=== PATIENT | female | born 1965 | race Caucasian/White ===

== ENCOUNTER → 2017-04-07 | Outpatient (CLI) | payer OTHER | LOC: US 03-23 08:45 | DX: K74.60 Unspecified cirrhosis of liver (principal); B19.10 Unspecified viral hepatitis B without hepatic coma; R16.2 Hepatomegaly with splenomegaly, not elsewhere classified | CPT/HCPCS: 76700 ==

== ENCOUNTER 2021-05-21 22:02 | Emergency (ER) | payer MEDICARE, OTHER ==
[~2021-05-21 22:02] MED LIST: LEVOFLOXACIN250 MG PO
[2021-05-21 22:47] LABS: WHITE BLOOD COUNT 15.5 K/UL (4.5-11.0)
== END 2021-05-22 00:15 | disposition home or self-care (01) ==
LOC: ER1 22:02
PROVIDERS: Physician Assistant
DX: M79.89 Other specified soft tissue disorders (principal); F17.200 Nicotine dependence, unspecified, uncomplicated; Z90.49 Acquired absence of other specified parts of digestive tract; Z88.8 Allergy status to other drugs, medicaments and biological substances; Z88.0 Allergy status to penicillin
CPT/HCPCS: 80053; 85025; 85379; 87040

== ENCOUNTER 2021-05-22 15:45 | Inpatient (IN) | payer MEDICARE, OTHER ==
[~2021-05-22] VITALS: Ht 165.1 cm; Wt 90.7 kg
[2021-05-22 19:36] LABS: HEMOGLOBIN 14.9 gm/dl (12.3-15.3)
[2021-05-22 19:37] LABS: RED BLOOD COUNT 4.41 M/UL (4.00-5.10); WHITE BLOOD COUNT 19.9 K/UL (4.5-11.0)
[2021-05-23 04:46] LABS: HEMOGLOBIN 12.5 gm/dl (12.3-15.3); RED BLOOD COUNT 3.64 M/UL (4.00-5.10)
[2021-05-23 11:34] LABS: ACINETOBACTER BAUMANNII Not Detected (Negative); CANDIDA ALBICANS Not Detected (Negative); CANDIDA KRUSEI Not Detected (Negative); CANDIDA TROPICALIS Not Detected (Negative); ENTEROCOCCUS Not Detected (Negative); ESCHERICHIA COLI Not Detected (Negative); HAEMOPHILUS INFLUENZAE Not Detected (Negative); KLEBSIELLA OXYTOCA Not Detected (Negative); KLEBSIELLA PNEUMONIAE Not Detected (Negative); KPC-CARBAPENEM-RESISTANCE GENE Not Detected (Negative); PROTEUS Not Detected (Negative); PSEUDOMONAS AERUGINOSA Not Detected (Negative); SERRATIA MARCESANS Not Detected (Negative); STAPHYLOCOCCUS Not Detected (Negative); STAPHYLOCOCCUS AUREUS Not Detected (Negative); STREP AGALACTIAE (GROUP B) Not Detected (Negative); mecA (METHICILLIN RESIST GENE Not Detected (Negative); vanA/B (VANCOMYCIN RESIST GENE Not Detected (Negative)
[2021-05-23 13:08] LABS: STREP PYOGENES (GROUP A) DETECTED (Negative); STREPTOCOCCUS DETECTED (Negative)
[2021-05-24 04:36] LABS: HEMOGLOBIN 12.5 gm/dl (12.3-15.3); RED BLOOD COUNT 3.63 M/UL (4.00-5.10); WHITE BLOOD COUNT 10.1 K/UL (4.5-11.0)
[2021-05-25 05:51] LABS: HEMOGLOBIN 11.8 gm/dl (12.3-15.3); RED BLOOD COUNT 3.49 M/UL (4.00-5.10); WHITE BLOOD COUNT 12.4 K/UL (4.5-11.0)
[2021-05-26 07:02] LABS: HEMOGLOBIN 11.8 gm/dl (12.3-15.3); RED BLOOD COUNT 3.62 M/UL (4.00-5.10); WHITE BLOOD COUNT 13.1 K/UL (4.5-11.0)
[2021-05-27 05:54] LABS: HEMOGLOBIN 12.2 gm/dl (12.3-15.3); RED BLOOD COUNT 3.71 M/UL (4.00-5.10); WHITE BLOOD COUNT 11.5 K/UL (4.5-11.0)
--- NOTE | 2021-05-27 16:21 | NUR ---
BID dressing change to right foot done at this time
[2021-05-28 06:34] LABS: HEMOGLOBIN 13.2 gm/dl (12.3-15.3); RED BLOOD COUNT 3.79 M/UL (4.00-5.10); WHITE BLOOD COUNT 10.9 K/UL (4.5-11.0)
--- NOTE | 2021-05-28 16:14 | NUR ---
BID dressing change performed at this time to right foot.
[2021-05-29] MEDS ORDERED: SILVADENE20 GM TOP (17:12)
[2021-05-29] MEDS ORDERED: CHRONULAC20 GM/30 M PO (17:12)
[2021-05-29] MEDS ORDERED: LEVOFLOXACIN750 MG PO (17:12)
== END 2021-05-29 18:55 | disposition home health service (06) | DRG 871 ==
LOC: ER1 15:45 → CDU 21:52 → M/S 21:52 → PROG CARE 05-23 19:29 → M/S 05-24 15:46
PROVIDERS: Internal Medicine; Physician Assistant; ADMIT Internal Medicine
PROC: B24BZZZ Ultrasonography of Heart with Aorta (ICD-10-PCS; principal; 2021-05-25)
DX: A41.9 Sepsis, unspecified organism (principal); G93.41 Metabolic encephalopathy; B19.10 Unspecified viral hepatitis B without hepatic coma; N18.4 Chronic kidney disease, stage 4 (severe); L03.115 Cellulitis of right lower limb; E87.1 Hypo-osmolality and hyponatremia; E87.2 Acidosis; N17.9 Acute kidney failure, unspecified; R65.20 Severe sepsis without septic shock; K74.60 Unspecified cirrhosis of liver; D69.6 Thrombocytopenia, unspecified; F17.210 Nicotine dependence, cigarettes, uncomplicated; J44.9 Chronic obstructive pulmonary disease, unspecified; I12.9 Hypertensive chronic kidney disease with stage 1 through stage 4 chronic kidney disease, or unspecified chronic kidney disease; E87.6 Hypokalemia; E83.51 Hypocalcemia; E86.0 Dehydration; E88.09 Other disorders of plasma-protein metabolism, not elsewhere classified; K72.90 Hepatic failure, unspecified without coma; I27.20 Pulmonary hypertension, unspecified; I07.1 Rheumatic tricuspid insufficiency; Z90.49 Acquired absence of other specified parts of digestive tract; Z98.51 Tubal ligation status; Z88.0 Allergy status to penicillin; Z88.8 Allergy status to other drugs, medicaments and biological substances; Z87.440 Personal history of urinary (tract) infections
CPT/HCPCS: ECHO; 36415; 71045; 73630; 73700; 76705; 80048; 80053; 80202; 81001; 82140; 82746; 83036; 83605; 83690; 84132; 85025; 85027; 85379; 85610; 85730; 86140; 87040; 87077; 87150; 87186; 93005; 93306; 93971; 96374; 96375; 97116; 97116-GP-CQ; 97162; 97530-GP-CQ; 99283; 99285; G0378; J1650; J1956; J2185; J2270; J2405; J3370; J7030; J7070; P9047; U0002

== ENCOUNTER 2021-06-23 13:23 | Inpatient (IN) | payer MEDICARE, OTHER ==
[~2021-06-23] VITALS: Ht 165.1 cm; Wt 90.7 kg
[~2021-06-23 13:23] MED LIST changes: +CHRONULAC20 GM/30 M PO; +LEVOFLOXACIN750 MG PO; +SILVADENE20 GM TOP
[2021-06-23 15:22] LABS: HEMOGLOBIN 8.7 gm/dl (12.3-15.3); RED BLOOD COUNT 2.66 M/UL (4.00-5.10); WHITE BLOOD COUNT 4.3 K/UL (4.5-11.0)
[2021-06-23 20:54] LABS: HEMOGLOBIN 9.1 gm/dl (12.3-15.3); RED BLOOD COUNT 2.79 M/UL (4.00-5.10)
[2021-06-24 01:25] LABS: HEMOGLOBIN 9.4 gm/dl (12.3-15.3); RED BLOOD COUNT 2.87 M/UL (4.00-5.10)
[2021-06-24 01:26] LABS: WHITE BLOOD COUNT 6.8 K/UL (4.5-11.0)
[2021-06-25 07:04] LABS: HEMOGLOBIN 10.1 gm/dl (12.3-15.3); RED BLOOD COUNT 3.13 M/UL (4.00-5.10)
[2021-06-25 07:06] LABS: WHITE BLOOD COUNT 9.6 K/UL (4.5-11.0)
--- NOTE | 2021-06-25 08:50 | NUR ---
PT SIGNED AMA PAPERS, STATED THAT SHE DID NOT WANT TO BE HERE THAT WE WERE NOT HELPING HER AND REFUSED AN IV. DOCTOR CALLED AND FAMILY CALLED
[2021-06-25 13:28] LABS: BUN/CREATININE RATIO 27 (0-10)
--- NOTE | 2021-06-25 13:44 | NUR ---
PT HAS THROWN TELE/PULSE OX 5 TIMES. DOCTOR AWARE, TELE AWARE
[2021-06-26 06:34] LABS: RED BLOOD COUNT 3.06 M/UL (4.00-5.10)
[2021-06-26 06:40] LABS: WHITE BLOOD COUNT 12.2 K/UL (4.5-11.0)
--- NOTE | 2021-06-26 07:03 | NUR ---
WHILE GETTING REPORT FROM [employer] NURSE. PT OBSERVED SITTING ON SIDE OF BED, SHE WAS STATING SHE NEED TO "PEE", PT HAD PULLED IV OUT AND FLUIDS DRIPPING ON FLOOR. EXPLAINED TO PT SHE HAS PALMA CATH AND ENCOURAGED TO LIE IN BED AND REST UNTIL BREAKFAST.
--- NOTE | 2021-06-26 15:53 | NUR ---
PT ROLLING AROUND IN BED, IV ALARMING, WENT TO ROOM AND IV NOT INFUSING AND CLOTTED OFF.
--- NOTE | 2021-06-26 20:32 | NUR ---
PRIMARY RN WAS IN ANOTHER ISOLATION ROOM ATTEMPTING AN IV WHEN THIS PT FELL IN HER ROOM. PT WAS DISCOVERED TO BE IN FLOOR BY ORIENTING RN AND ALSO BY TECH ON FLOOR. PT WAS NOT ABLE TO BEAR WEIGHT TO GET BACK INTO BED. 2 RN'S AND 2 TECH'S PLACED PT BACK INTO BED AFTER BEING ABLE TO GET PT IN CHAIR. VS WERE STABLE. BP 102/80, HR 104, RR 20, TEMP 97.6 F ORALLY, AND O2 95% ON RA. MD MADE AWARE OF FALL, VS, AND NEW INJURIES, BLACK LEFT EYE, SKIN TEARS TO BILAT ARMS, BRUISING TO RIGHT SIDE. PT NOT COMPLAINING OF ANY NEW PAIN. STAT CT OF HEAD WITHOUT ORDERED. BED ALARMS X2 ACTIVATED, NON-SKID SOCKS PLACED. WCTM
[2021-06-27 06:49] LABS: HEMOGLOBIN 9.6 gm/dl (12.3-15.3); RED BLOOD COUNT 2.88 M/UL (4.00-5.10); WHITE BLOOD COUNT 11.8 K/UL (4.5-11.0)
[2021-06-28 07:43] LABS: HEMOGLOBIN 8.5 gm/dl (12.3-15.3); WHITE BLOOD COUNT 10.6 K/UL (4.5-11.0)
[2021-06-28 07:51] LABS: RED BLOOD COUNT 2.59 M/UL (4.00-5.10)
[2021-06-29 07:06] LABS: HEMOGLOBIN 8.3 gm/dl (12.3-15.3); RED BLOOD COUNT 2.52 M/UL (4.00-5.10); WHITE BLOOD COUNT 9.9 K/UL (4.5-11.0)
[2021-06-30 10:30] LABS: HEMOGLOBIN 7.8 gm/dl (12.3-15.3); RED BLOOD COUNT 2.32 M/UL (4.00-5.10); WHITE BLOOD COUNT 6.7 K/UL (4.5-11.0)
[2021-07-01 06:51] LABS: HEMOGLOBIN 6.3 gm/dl (12.3-15.3); RED BLOOD COUNT 1.89 M/UL (4.00-5.10)
[2021-07-02 10:07] LABS: WHITE BLOOD COUNT 4.8 K/UL (4.5-11.0)
[2021-07-02 10:39] LABS: HEMOGLOBIN 8.8 gm/dl (12.3-15.3); RED BLOOD COUNT 2.69 M/UL (4.00-5.10)
--- NOTE | 2021-07-02 13:08 | NUR ---
spoken with dr. dean patient condition r/t khan catheter pinkish color urine, hospital rob with signs of clear fluid around the abdominal area, patient condition and dr. dean acknowledged
--- NOTE | 2021-07-03 02:56 | NUR ---
PATIENT COMPLAINS OF SOA. PATIENT ON TELE SINUS HR 80S PULSE OX IN USE 98% ON 02 PER N/C. PATIENT COUGHING UP BLOODY SPUTUM ABDOMEN DISTENDED SOFT AND WEEPING. PATIENT ALSO HAS 2+ EDEMA IN THE LOWER EXTREMTITIES. DR JOSEPH NOTIFIED OF ALL THESE FINDINGS SEE CHART FOR ORDERS.
[2021-07-03 07:09] LABS: HEMOGLOBIN 8.6 gm/dl (12.3-15.3); RED BLOOD COUNT 2.61 M/UL (4.00-5.10); WHITE BLOOD COUNT 4.8 K/UL (4.5-11.0)
[2021-07-04 08:34] LABS: HEMOGLOBIN 8.7 gm/dl (12.3-15.3); RED BLOOD COUNT 2.58 M/UL (4.00-5.10)
[2021-07-04 08:35] LABS: WHITE BLOOD COUNT 6.5 K/UL (4.5-11.0)
--- NOTE | 2021-07-04 12:19 | NUR ---
family available and spoken to dr. dean and dr. ceballos about patient current condition. family talking to hospice admission nurse and dr. dean.
[2021-07-04] MEDS ORDERED: PROTONIX 40 MG40 M1 PO (13:08)
[2021-07-04] MEDS ORDERED: IPRAT-ALBUT 0.5-3 ML NEB (13:08)
[2021-07-04] MEDS ORDERED: ZOFRAN4 MG PO (13:26)
--- NOTE | 2021-07-04 16:26 | NUR ---
report given to denise culp nurse
--- NOTE | 2021-07-04 18:35 | NUR ---
Discharge folder was found at nurses desk. attempted to catch ems with no success. contacted hospice nurse and refused to product picker the folder. contacted family member and stated will product picker the folder. given the folder to family member.
== END 2021-07-04 17:13 | DRG 177 ==
LOC: ER1 13:23 → CDU 22:03 → M/S 22:03
PROVIDERS: Family Medicine; Internal Medicine; Physician Assistant Medical; ADMIT Internal Medicine
PROC: 8E0ZXY6 Isolation (ICD-10-PCS; principal; 2021-06-25)
DX: U07.1 COVID-19 (principal); J12.82 Pneumonia due to coronavirus disease 2019; K76.7 Hepatorenal syndrome; A41.89 Other specified sepsis; K72.00 Acute and subacute hepatic failure without coma; J96.01 Acute respiratory failure with hypoxia; S36.039A Unspecified laceration of spleen, initial encounter; B19.10 Unspecified viral hepatitis B without hepatic coma; R18.8 Other ascites; G93.40 Encephalopathy, unspecified; K76.6 Portal hypertension; D61.818 Other pancytopenia; E87.2 Acidosis; N18.4 Chronic kidney disease, stage 4 (severe); Z66 Do not resuscitate; Z51.5 Encounter for palliative care; E87.6 Hypokalemia; W18.30XA Fall on same level, unspecified, initial encounter; K74.60 Unspecified cirrhosis of liver; F19.10 Other psychoactive substance abuse, uncomplicated; K21.9 Gastro-esophageal reflux disease without esophagitis; F12.90 Cannabis use, unspecified, uncomplicated; I12.9 Hypertensive chronic kidney disease with stage 1 through stage 4 chronic kidney disease, or unspecified chronic kidney disease; F15.10 Other stimulant abuse, uncomplicated; F11.10 Opioid abuse, uncomplicated; F17.210 Nicotine dependence, cigarettes, uncomplicated; E80.6 Other disorders of bilirubin metabolism; K59.00 Constipation, unspecified; E66.01 Morbid (severe) obesity due to excess calories; Z90.49 Acquired absence of other specified parts of digestive tract; Y93.89 Activity, other specified; Y92.89 Other specified places as the place of occurrence of the external cause; Y99.8 Other external cause status; Z98.51 Tubal ligation status; Z88.1 Allergy status to other antibiotic agents; Z88.8 Allergy status to other drugs, medicaments and biological substances
CPT/HCPCS: 36415; 36430; 36600; 70450; 71045; 80048; 80053; 80307; 81001; 82140; 82248; 82436; 82570; 82607; 82746; 82803; 83605; 83615; 83690; 83735; 84100; 84133; 84156; 84300; 85014; 85018; 85025; 85027; 85045; 85049; 85610; 86850; 86870; 86880; 86900; 86901; 86920; 86922; 87086; 93005; 94664; 94760; 96374; 96375; 96376; 97161; 97166; 99285; G0378; J0360; J1100; J1170; J2060; J2185; J2270; J2354; J2405; J3411; J3480; J7030; J7070; P9016; P9035; P9047; U0002